=== PATIENT | male | born 1980 | race Caucasian/White ===

== ENCOUNTER → 2019-02-18 | Outpatient (CLI) | payer BC | END | disposition home or self-care (01) | LOC: SHCH 13:03 | PROVIDERS: ATTEND Internal Medicine Cardiovascular Disease | DX: I48.0 Paroxysmal atrial fibrillation (principal); I49.5 Sick sinus syndrome | CPT/HCPCS: 93306 ==

== ENCOUNTER → 2021-03-16 | Outpatient (CLI) | payer BC | END | disposition home or self-care (01) | LOC: SHCH 15:24 | PROVIDERS: ATTEND Internal Medicine Cardiovascular Disease | DX: R06.09 Other forms of dyspnea (principal); R00.2 Palpitations; R07.9 Chest pain, unspecified | CPT/HCPCS: 93306; 93356 ==

== ENCOUNTER 2021-04-24 08:21 | Day surgery (SDC) | payer BC ==
[2021-04-19 15:23] LABS: BASOPHILS % (AUTO) 0.8 % (0.0-5.0); HEMATOCRIT 41.5 % (42-54); LYMPHOCYTES % (AUTO) 39.5 % (21.0-51.0); MEAN CORPUSCULAR HGB CONC 34.2 g/dL (32.0-36.0); MEAN CORPUSCULAR VOLUME 84.9 fL (79-99); MONOCYTES % (AUTO) 9.2 % (3.0-13.0); NEUTROPHILS % (AUTO) 47.2 % (40.0-77.0); PLATELET COUNT (AUTO) 276 K/uL (130-400); RED BLOOD CELL COUNT(AUTO) 4.89 MIL/uL (4.50-6.20); RED CELL DISTRIBUTION WIDTH 12.2 % (11.0-15.5); WHITE BLOOD COUNT (AUTO) 6.6 K/uL (4.8-10.8)
[2021-04-19 15:36] LABS: CREATININE 1.2 mg/dL (0.5-1.5); INR 1.05 (0.85-1.15); POTASSIUM 4.9 mmol/L (3.5-5.1); PROTHROMBIN TIME 11.4 SEC (9.6-11.6)
[2021-04-19 15:38] LABS: PARTIAL THROMBOPLASTIN TIME 28.5 SEC (26.3-35.5)
[~2021-04-24] VITALS: Ht 182.9 cm; Wt 104.3 kg
[~2021-04-24 08:21] MED LIST: 0.9%NACL 1000ML 1,000 ML IV SCH; CEFAZOLIN SODIUM 1 GM VIAL IVP ONE
[2021-04-24 09:15] VITALS: BP 106/69
[2021-04-24] MEDS ORDERED: VITAMIN D3 PO (10:03)
[2021-04-24] MEDS ORDERED: ASCO100031 PO (10:03)
[2021-04-24] MEDS ORDERED: BUPIVACAINE/PF 0.25% 30ML VIAL IJ ONE (10:52)
[2021-04-24] MEDS ORDERED: CEFAZOLIN SODIUM 1 GM VIAL ONE (10:52)
[2021-04-24] MEDS ORDERED: MEPERIDINE-PF 25 MG/ML SYG ONE (10:53)
[2021-04-24] MEDS ORDERED: MIDAZOLAM HCL 1 MG/ML 2ML VIAL ONE (10:53)
[2021-04-24] MEDS ORDERED: LIDOCAINE HCL 1% MDV 50ML VIAL ONE (10:53)
[2021-04-24 12:59] VITALS: BP 130/79
== END 2021-04-24 13:15 | disposition home or self-care (01) ==
LOC: DAH 08:21
PROVIDERS: ATTEND Internal Medicine Cardiovascular Disease
DX: Z45.010 Encounter for checking and testing of cardiac pacemaker pulse generator [battery] (principal); I49.5 Sick sinus syndrome; E78.5 Hyperlipidemia, unspecified; Z79.01 Long term (current) use of anticoagulants; Z79.899 Other long term (current) drug therapy; Z53.8 Procedure and treatment not carried out for other reasons
CPT/HCPCS: 36415; 80048; 85025; 85610; 85730; 93005; A4215; A4216; A4221; A4222; A4223 ×3; A4606; A4663; J0690; J2175; J2250; J3490 ×2; J7030